=== PATIENT | male | born 1960 | race Caucasian/White ===

== ENCOUNTER 2016-08-16 17:24 | Emergency (ER) | payer OTHER ==
[~2016-08-16] VITALS: Ht 175.3 cm; Wt 82.0 kg
[~2016-08-16 17:24] MED LIST: ADVA250A INH; ALBU1.25 NEB; ALPR-138 PO; BACT800T5 PO; CIPR500T2 PO; DYAZ37.52 PO; MEDR4PAK3 PO; NAPR500 PO
[2016-08-16 17:35] VITALS: BP 147/81; PULSE 77; RESP 18; TEMP 98.9; O2SAT 95
[2016-08-16] MEDS ORDERED: HYDR-3534 PO (17:52)
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
[2016-08-16] MEDS ORDERED: KETOROLAC TROMETHAMINE 60 MG/2 ML (IM) VIAL IM ONE (18:00)
[2016-08-16] MEDS ORDERED: ORPHENADRINE INJ 60 MG/2 ML AMP IM ONE (18:00)
--- NOTE | 2016-08-16 18:22 | RADRPT ---
EXAM DATE/TIME: 08/16/2016 18:08 [facility] COMPARISON: No previous studies available for comparison. INDICATIONS : Wheezing. MEDICAL HISTORY : Chronic obstructive pulmonary disease. SURGICAL HISTORY : None. ENCOUNTER: Initial ACUITY: 1 day PAIN SCORE: 0/10 LOCATION: Bilateral chest FINDINGS: Lungs are hyperexpanded. There is basilar scarring. No infiltrate seen. No pleural effusion or pneumo thorax. Heart size within normal limits. Thoracic aorta is tortuous. CONCLUSION: No evidence of acute cardiopulmonary disease. Hyperexpanded but clear lungs. Domenico Robles MD on August 16, 2016 at 18:20 Board Certified Radiologist. This report was verified electronically.
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
[2016-08-16] MEDS ORDERED: IBUP800T23 PO (18:52)
[2016-08-16] MEDS ORDERED: CYCL1TAB29 PO (18:52)
== END 2016-08-16 19:37 | disposition home or self-care (01) ==
LOC: NEPD 17:24
DX: M62.838 Other muscle spasm (principal); S39.012A Strain of muscle, fascia and tendon of lower back, initial encounter; J44.9 Chronic obstructive pulmonary disease, unspecified; G89.29 Other chronic pain; I10 Essential (primary) hypertension; M54.2 Cervicalgia; V59.49XA Driver of pick-up truck or van injured in collision with other motor vehicles in traffic accident, initial encounter; Y92.410 Unspecified street and highway as the place of occurrence of the external cause; Y99.0 Civilian activity done for income or pay; Z72.0 Tobacco use
CPT/HCPCS: 71020; 72040; 72100; 96372; 99284; J1885; J2360

== ENCOUNTER 2018-03-13 05:59 | Inpatient (IN) ==
--- NOTE | 2018-03-08 14:12 | MH ---
cc: Zuleyka Guerra MD DATE OF ADMISSION: 03/13/2018 ADMITTING DIAGNOSIS: Osteoarthritic degeneration of the left hip, now being admitted for left total hip arthroplasty. HISTORY OF PRESENT ILLNESS: A 57-year-old male who is being admitted today for a left total hip arthroplasty due to severe painful osteoarthritic degeneration. OTHER PAST HISTORY: The patient has a history of sleep apnea, back pain, and essential hypertension. CURRENT MEDICATIONS: Include: 1. Alprazolam. 2. Clindamycin. 3. Hydrocodone 7.5. 4. Tizanidine. PREVIOUS SURGERIES: None listed. REVIEW OF SYSTEMS: Noncontributory. FAMILY HISTORY: Noncontributory. SOCIAL HISTORY: He does smoke cigarettes. ALLERGIES: HE HAS ALLERGY TO PENICILLIN. PHYSICAL EXAMINATION: GENERAL: We find a 57-year-old male, well-developed, well-nourished, oriented x 3, complaining of pain in his left hip. VITAL SIGNS: Blood pressure 178/106, pulse 80 and regular, respirations 16, temperature 98.7, pulse oximetry 97% on room air. HEENT: Eyes: PERRLA, EOMI. Ears, nose, mouth clear. NECK: Supple. LUNGS: Clear. HEART: Regular rate. ABDOMEN: Soft, positive bowel sounds, nontender. EXTREMITIES: Reveal the left hip to have decreased range of motion. Neurovascularly intact to his toes. IMPRESSION: Severe painful osteoarthritic degeneration of the left hip. PLAN: Admission for left total hip arthroplasty today. The patient was given prescription for postoperative pain and anticoagulation control in the office. J. MD FELICIA Garcia/vita , 01:56 PM , 02:04 PM
[2018-03-13] MEDS ORDERED: Metoprolol Tartrate 25 MG Tablet PO ONE (06:21)
[2018-03-13] MEDS ORDERED: Chlorhexidine Gluconate 2% 1 Pack (2 Cloths) TOPICAL ONE (06:21)
[2018-03-13] MEDS ORDERED: Ketamine Inj 50 MG/5 ML Syringe IV.PUSH ONE (06:27)
[2018-03-13] MEDS ORDERED: HYDROmorphone PF Inj 1 MG/ML Ampul ONE (06:27)
[2018-03-13] MEDS ORDERED: Clindamycin 900 mg/NS Premix 900 MG/50 ML PIGGYBACK IV.SIG SCH ×2 (06:30→12:00)
[2018-03-13] MEDS ORDERED: Chlorhexidine 4% Topical 120 APPLIC/120 ML Bottle TOPICAL SCH (06:30)
[2018-03-13] MEDS ORDERED: Sodium Chlor 0.9% Inj 500 ML IV.SIG SCH (07:00)
[2018-03-13] MEDS ORDERED: Sodium Chlor 0.9% Inj 80 ML, Bupivacaine Liposo PF 1.3% Inj 20 ML, Bupivacaine 0.25% In... P-ARTICULR SCH ×3 (07:30)
[2018-03-13] MEDS ORDERED: Tranexamic Acid Inj 900 MG in Sodium Chlor 0.9% Inj 100 ML IV.SIG SCH ×2 (07:30→10:30)
[2018-03-13] MEDS ORDERED: Glycopyrrolate Inj 1 MG/5 ML Syringe IV.PUSH ONE (07:39)
[2018-03-13] MEDS ORDERED: Phenylephrine/NS 1000 MCG/10ML Syringe IV.PUSH ONE (07:39)
[2018-03-13] MEDS ORDERED: Sod Chloride 0.9% Inj 1,000 ML IV.CONT ONE (07:39)
[2018-03-13] MEDS ORDERED: Neostigmine Inj 5 MG/5 ML Syringe IV.PUSH ONE (07:39)
[2018-03-13] MEDS ORDERED: Lidocaine PF 1% Inj 5 ML Syringe OTHER ONE (07:39)
[2018-03-13] MEDS ORDERED: Tranexamic Acid Inj 1,000 MG in Sodium Chlor 0.9% Inj 100 ML IV.SIG ONE (07:42)
[2018-03-13] MEDS ORDERED: Bisacodyl 10 MG Supp RECTAL PRN (07:42)
[2018-03-13] MEDS ORDERED: Post-op Orders (for Pharmacy) OTHER STA (07:42)
[2018-03-13] MEDS ORDERED: Morphine Inj 4 MG/ML Vial IV.PUSH PRN (07:42)
--- NOTE | 2018-03-13 07:49 | P.DCO ---
- Physical Therapy Order: Evaluate and treat, Improve ambulation, Strength and gait training - Case Management Consult Yes - Certification I have seen patient Adam Bui on 03/13/18. My clinical findings support the need for the requested home health care services because: Limited ability to care for self, High risk of falls I certify that my clinical findings support that this patient is homebound because: Post-op weakness, Unsteady gait/balance
[2018-03-13] MEDS ORDERED: VARENICLINE PO SCH (09:00)
--- NOTE | 2018-03-13 10:11 | P.CONIM ---
History of Present Illness Requesting Physician: Nathalie Guerra Reason for Consult: apnea Primary Care Provider: Salima Rodriguez MD History of Present Illness: This a 57-year-old male patient with a past medical history which includes COPD, current tobacco abuse on Chantix trying to quit, generalized anxiety disorder, hypertension, hyperlipidemia and osteoarthritis of the left hip. Patient was admitted to the hospital today for planned left hip arthroplasty with Dr. Guerra. We have been consulted for assistance in management of sleep apnea. Patient denies sleep apnea reports he does not use CPAP or BiPAP at home. Patient reports he is doing well and offers no specific complaints at this time. Patient denies nausea vomiting diarrhea constipation fevers chills cough congestion shortness of breath or chest pain. PMH: COPD, current tobacco abuse on Chantix trying to quit, generalized anxiety disorder, hypertension, hyperlipidemia and osteoarthritis of the left hip PSxH: Cholecystectomy, destruction of benign benign lesion by cryosurgery, excision of trunk lesion, surgical repair of left wrist Social history: works part-time quit smoking a couple days ago Occasional EtOH use not on a daily basis FMH: Reviewed and noncontributory [facility] Social History Social History Substance History: Active Abuse Second Hand Smoke Exposure: No Smoking Status: Former smoker Tobacco Type: Cigarettes How Often Do You Have a Drink Containing Alcohol: Never Substance Abuse Detail Marijuana: Substance Use Status: Active Route Used Substance Abuse: Inhalation Substance Frequency: occasional Medications and Allergies Allergies Allergy/AdvReac Type Severity Reaction Status Date / Time penicillin G Allergy Severe ANAPHYLAXIS Verified 03/13/18 06:28 Home Medications Medication Instructions Recorded Confirmed Type alprazolam 1 mg PO HS 03/06/18 03/13/18 History hydrocodone-acetaminophen 1 tab PO Q6H PRN 03/06/18 03/13/18 History ibuprofen 800 mg PO TID PRN 03/06/18 03/13/18 History varenicline [Chantix Starting 1 tab PO BID 03/06/18 03/13/18 History Month Box] albuterol sulfate 2 puff INHALATION Q4-6H PRN 03/13/18 03/13/18 History diltiazem HCl 60 mg PO BID 03/13/18 03/13/18 History tizanidine 4 mg PO TID PRN 03/13/18 03/13/18 History Active Medications: Active Medications Hydrocodone Bitart/Acetaminophen ([place] 7.5/325) 1 tab PO Q4H PRN PRN Reason: PAIN LESS THAN 5 ON SCALE Hydrocodone Bitart/Acetaminophen ([place] 7.5/325) 2 tab PO Q6H PRN PRN Reason: PAIN SCALE 5 TO 10 Al Hydroxide/Mg Hydroxide (Milk Of Magnesia Liq) 30 ml PO BID PRN PRN Reason: Mild Constipation Albuterol (Ventolin Hfa Inh) 2 puff INH Q4-6H PRN PRN Reason: Shortness Of Breath Alprazolam (Xanax) 1 mg PO HS TANYA Apixaban (Eliquis) 2.5 mg PO BID TANYA Bisacodyl (Dulcolax Supp) 10 mg RECTAL DAILY PRN PRN Reason: SEVERE CONSITIPATION Chlorhexidine Gluconate (Hibiclens 4% Topical) 1 applicatio TOPICAL ONCE [facility] Stop: 03/17/18 06:29 Last Admin: 03/13/18 06:30 Dose: 1 applicatio Sodium Chloride 80 ml/Bupivacaine Liposome 20 ml/Bupivacaine HCl 20 ml 0 ml P- ARTICULR ONCE [facility] Stop: 03/13/18 14:00 Last Admin: 03/13/18 09:32 Dose: 120 bag Lactated Ringer's (Lr 1000 Ml Inj) 1,000 mls @ 30 mls/hr IV.SIG .Q24H [facility] Stop: 03/14/18 06:29 Last Infusion: 03/13/18 10:00 Dose: Infused Sodium Chloride (Ns Inj) 500 mls @ 30 mls/hr IV.SIG .Q10H [facility] Last Admin: 03/13/18 06:46 Dose: Not Given Tranexamic Acid 900 mg/ Sodium (Chloride) 109 mls @ 200 mls/hr IV.SIG ONCE [facility] Stop: 03/13/18 14:00 Last Infusion: 03/13/18 08:20 Dose: Infused Tranexamic Acid 900 mg/ Sodium (Chloride) 109 mls @ 200 mls/hr IV.SIG ONCE [facility] Stop: 03/13/18 14:00 Clindamycin/Sodium Chloride (Cleocin 900 Mg/Ns Premix) 900 mg in 50 mls @ 100 mls/hr IV.SIG TAXI [employer]UCK [employer]IVER [facility] Stop: 03/17/18 06:29 Last Infusion: 03/13/18 08:05 Dose: Infused Cefazolin Sodium 1,000 mg/ (Sodium Chloride) 100 mls @ 200 mls/hr IV.SIG Q6H [facility] Stop: 03/13/18 20:29 Lactated Ringer's (Lr 1000 Ml Inj) 1,000 mls @ 80 mls/hr IV.CONT .[id number] TANYA Tranexamic Acid 1,000 mg/ (Sodium Chloride) 110 mls @ 200 mls/hr IV.SIG ONCE ONE Stop: 03/13/18 08:14 Lactulose (Lactulose Liq) 30 ml PO DAILY PRN PRN Reason: SEVERE CONSITIPATION Miscellaneous Information (Misc Post-Op Orders (For Pharmacy)) 0 each OTHER STAT STA Stop: 03/13/18 07:43 Morphine Sulfate (Morphine Inj) 2 mg IV.PUSH Q3H PRN PRN Reason: BREAKTHROUGH PAIN Multivitamins/Minerals (Theragran-M) 1 tab PO BID [facility] Stop: 05/12/18 08:59 Non-Formulary Medication (Tizanidine [Tizanidine]) 4 mg PO TID PRN PRN Reason: Spasms Non-Formulary Medication (Varenicline [Chantix Starting Month Box]) 1 tab PO BID [facility] Ondansetron HCl (Zofran Odt) 4 mg PO Q6H PRN PRN Reason: NAUSEA OR VOMITING Senna/Docusate Sodium (Melissa-Colace) 1 tab PO BID [facility] Sennosides (Senokot) 17.2 mg PO BID PRN PRN Reason: Moderate Constipation Sodium Chloride (Ns Flush) 2 ml IV.FLUSH PRN PRN PRN Reason: FLUSH AFTER USING IV ACCESS Sodium Chloride (Ns Flush) 2 ml IV.FLUSH BID [facility] Physical Exam Vital signs: Last Vital Signs Temp 98.6 F 03/13/18 06:32 Pulse 68 03/13/18 07:02 Resp 22 03/13/18 07:02 BP 143/91 H 03/13/18 06:32 Pulse Ox 95 03/13/18 06:32 Narrative: GENERAL: This is a well-nourished, well-developed patient, in no apparent distress. CARDIOVASCULAR: Regular rate and rhythm RESPIRATORY: Clear to auscultation. Breath sounds equal bilaterally. GASTROINTESTINAL: Abdomen soft, non-tender, nondistended. Normal active bowel sounds MUSCULOSKELETAL: Extremities without clubbing, cyanosis, or edema. NEURO: Alert & Oriented x4 to person, place, time, situation. Moves all ext x4 Assessment and Plan Plan This a 57-year-old male patient with a past medical history which includes COPD , current tobacco abuse on Chantix trying to quit, generalized anxiety disorder , hypertension, hyperlipidemia and osteoarthritis of the left hip. Patient was admitted to the hospital today for planned left hip arthroplasty with Dr. Guerra. We have been consulted for assistance in management of sleep apnea. Patient denies sleep apnea reports he does not use CPAP or BiPAP at home. Patient reports he is doing well and offers no specific complaints at this time. Patient denies nausea vomiting diarrhea constipation fevers chills cough congestion shortness of breath or chest pain. Osteoarthritis of the left hip Patient was admitted to the hospital today for planned left hip arthroplasty with Dr. Guerra Postop management per Dr. Guerra Anticoagulation per Dr. Guerra COPD Not in acute exacerbation Symbicort inhaled twice daily Duo nebs Q6H while awake and as needed Current tobacco abuse on Chantix trying to quit Counseled encouraged to abstain does not want nicotine patch Generalized anxiety disorder Patient takes alprazolam 1 mg p.o. nightly at home Hypertension History of paroxysmal SVT Continue patient's home diltiazem 60 mg p.o. twice daily Hyperlipidemia Not currently on statin medication at home consumes a low-cholesterol low-fat diet
[2018-03-13] MEDS ORDERED: fentaNYL Citrate Inj 100 MCG/2 ML Ampul ONE (10:31)
--- NOTE | 2018-03-13 10:42 | P.BOP ---
- Preoperative Diagnosis (1) Osteoarthritis of left hip (2) Status post total replacement of left hip Date of procedure: 03/13/18 Procedure: Left Total Hip Arthroplasty Anesthesia: GETA Surgeon: Zuleyka Guerra MD Certified Hyperbaric Technician: Abby Beard Estimated blood loss (mL): 200 Urine output (mL): 0 (no wilkins) Pathology: none sent Condition: stable Disposition: PACU
[2018-03-13] MEDS ORDERED: *morphine SULFATE 4 MG/ML PERIprocedure ONLY ONE (10:50)
[2018-03-13] MEDS ORDERED: *morphine SULFATE 10 MG/ML PERIprocedure ONLY ONE (11:03)
[2018-03-13] MEDS: Senna/Docusate Sodium 8.6/50 MG Tablet PO SCH ×2 (11:06→20:13)
[2018-03-13] MEDS: Multivitamin/Minerals Therapeutic Tablet PO SCH ×2 (11:12→20:13)
--- NOTE | 2018-03-13 11:17 | XR ---
EXAM DATE: 03/13/2018 11:14 AM EST AGE/SEX: 57 years / Male INDICATIONS: Post-op left hip. CLINICAL DATA: This is the patient's initial encounter. Patient reports that signs and symptoms have been present for 1 day and indicates a pain score of Nonresponsive. MEDICAL/SURGICAL HISTORY: Non-responsive. Non-responsive. COMPARISON: No prior exams available for comparison. FINDINGS: The patient is status post a total hip arthroplasty. Prosthesis is well-seated. Alignment is anatomic . A fracture is not appreciated. CONCLUSION: Anatomic alignment. Ajay Sanford MD FACR Electronically signed by: Ajay Sanford MD 03/13/2018 11:16 AM EST
--- NOTE | 2018-03-13 11:37 | MP ---
cc: Zuleyka Guerra MD DATE OF OPERATION: 03/13/2018 PREOPERATIVE DIAGNOSIS: Osteoarthritic degeneration, left hip. POSTOPERATIVE DIAGNOSIS: Osteoarthritic degeneration, left hip. PROCEDURE PERFORMED: Left total hip arthroplasty using Aesculap components, size 58 cup with a 28 x 6.5 mm screw, 36E liner, and a 36 -4 ceramic head with a size 13 press-fit standard stem with no cement utilized. SURGEON: Zuleyka Guerra MD. FLARE MAN: Abby Beard APRN. ANESTHESIA: General intubation. DETAILS OF PROCEDURE: The patient was brought to the Operating Room, where after successful induction of spinal anesthesia was placed on the operating room table in the lateral decubitus position. The left hip, thigh, and leg were prepped and draped in the usual manner. A posterolateral approach was then utilized by making an incision over the proximal portion of the femur lateral aspect, carried across the greater trochanter, carried posterior in a curved incision toward the buttock. The incision was carried down through the subcutaneous tissue, through the fibers of the tensor fascia jeremías and gluteus kalee to expose the greater trochanteric bursa. This was then removed by sharp and blunt dissection. The hip was then internally rotated to expose the insertions of the short external rotators of the hip and were incised at their insertion into the greater trochanter and reflected posterior to protect the sciatic nerve. These were held with a Charnley retractor to better visualize the hip joint. The capsule was identified and removed by sharp dissection. The hip was then dislocated by internal rotation and flexion of the hip. The femoral calcar was then measured using the trial components for the appropriate length cut of the neck using an oscillating saw. After the cut was made the head was removed. The acetabulum was then approached and measured, the acetabulum reamed with the acetabular reamers. Next, the femoral calcar was approached by first inserting a canal finder followed by rigid reamers, followed by a cookie-cutter to the appropriate size, in this case being a #15. The broach was left in place and a planer used to plane the calcar to a smooth finish. The broach was then removed. The trial components were then inserted into place, the hip reduced, found to track smoothly with no evidence of subluxation or dislocation. All trial components were removed. The wound was irrigated copiously with antibiotic solution and Water Pik. The actual components were then inserted and impacted into place using Aesculap components, size 58 cup with a 28 x 6.5 mm screw, 36E liner, and a 36 -4 ceramic head with a size 13 press-fit standard stem with no cement utilized. The hip was reduced, found to track smoothly with no evidence of subluxation or dislocation. Meticulous hemostasis achieved. The wound was irrigated copiously with antibiotic solution. Then 60 mL of mixture of Exparel, normal saline, and 0.25% Marcaine plain inserted in the anterior hip joint staying away from the sciatic nerve, which was identified and protected throughout the procedure. The capsule approximated with interrupted #1 Vicryl, deep fascia approximated with running #2 Quill. Subcutaneous tissue approximated using a running 2-0 and 3-0 Quill and Prineo dressing. Abduction pillow splint. No drain utilized. ESTIMATED BLOOD LOSS: 400 mL. COUNTS: Sponge and instrument counts were correct. DISPOSITION: The patient tolerated the procedure well and left the operating room in satisfactory condition. Abby Beard APRN, was present during the entire procedure to include patient positioning and the procedure. The medical necessity of the nurse practitioner rn first assistant was indicated in this case due to the surgical complexity of the case itself. During the surgical case, the communications tech was working the back table and my animal assistant, NOE, was directly assisting me. JMD FELICIA Christine/lata , 10:40 AM , 10:46 AM
[2018-03-13] MEDS: Clindamycin 900 mg/NS Premix 900 MG/50 ML PIGGYBACK IV.SIG SCH ×2 (15:41→22:37)
[2018-03-13] MEDS: Budesonide-Formoterol 160/4.5 MCG 6 GM Inhaler INH SCH (20:14)
[2018-03-14 06:26] LABS: Hematocrit 36.5 % (39.0-51.0); Hemoglobin 12.6 gm/dL (13.0-17.0)
[2018-03-14] MEDS: Clindamycin 900 mg/NS Premix 900 MG/50 ML PIGGYBACK IV.SIG SCH (06:46)
[2018-03-14] MEDS: Senna/Docusate Sodium 8.6/50 MG Tablet PO SCH (08:13)
[2018-03-14] MEDS: Budesonide-Formoterol 160/4.5 MCG 6 GM Inhaler INH SCH (08:13)
[2018-03-14] MEDS: Multivitamin/Minerals Therapeutic Tablet PO SCH (08:13)
--- NOTE | 2018-03-14 09:21 | P.CON ---
History of Present Illness Service: Radiation oncology Consult date: 03/14/18 Requesting Physician: Nathalie Guerra Reason for Consult: Evaluation for prophylactic radiation to prevent HO formation Primary Care Provider: Salima Rodriguez MD Chief Complaint: Osteoarthritic degeneration of the left hip History of Present Illness: 57-year-old white male with severe osteoarthritic degeneration of the left hip is status post left total hip arthroplasty. Due to the severe painful ulcer to the degeneration of the left hip the patient has undergone a total left hip replacement and Dr. Guerra, has recommended for the patient to have postoperative adjuvant radiation therapy to prevent heterotropic bone formation. Patient has been referred for discussion of her therapy treatment options Review of Systems Constitutional: Denies anorexia, Denies body ache(s), Denies chills, Denies daytime sleepiness, Denies excessive sweating, Denies fatigue, Denies fever(s), Denies headache(s), Denies increased appetite, Denies lack of energy, Denies malaise, Denies night sweats, Denies weakness, Denies weight gain, Denies weight loss, Denies other Eyes: Denies blind spots, Denies blurry vision, Denies bulging eyes, Denies change in vision, Denies double vision, Denies discharge, Denies dry eyes, Denies floaters, Denies irritation, Denies itchy eyes, Denies loss of vision, Denies pain, Denies requires corrective lenses, Denies sensitivity to light, Denies other Ears, Nose, Mouth, and Throat: Denies abnormal hearing, Denies bleeding gums, Denies bad breath, Denies change in voice, Denies dental pain, Denies difficulty swallowing, Denies dizziness, Denies dry mouth, Denies ear discharge , Denies ear pain, Denies facial pain, Denies headache(s), Denies hearing loss, Denies hoarseness, Denies lip swelling, Denies nosebleed, Denies mouth lesions, Denies mouth pain, Denies nasal congestion, Denies nasal discharge, Denies nasal obstruction, Denies nasal trauma, Denies neck lump, Denies neck pain, Denies nose pain, Denies pain with swallowing, Denies poor balance, Denies post nasal drip, Denies ringing in the ears, Denies sinus pain, Denies sinus pressure , Denies sore throat, Denies throat swelling, Denies tongue swelling, Denies other Cardiovascular: Denies chest pain, Denies chest pain at rest, Denies chest pain with activity, Denies excessive sweating, Denies fainting, Denies fast heart rate, Denies foot swelling, Denies generalized swelling, Denies irregular heart rhythm, Denies leg pain with activity, Denies leg sores, Denies leg swelling, Denies lightheadedness, Denies radiating jaw, neck or arm pain, Denies rapid, pounding, or irregular heartbeat, Denies shortness of breath, Denies shortness of breath with activity, Denies shortness of breath when lying down, Denies shortness of breath causing sudden awakening, Denies slow heart rate, Denies other Gastrointestinal: Denies abdominal pain, Denies belching, Denies black, tarry stools, Denies bloating, Denies bright, red blood in stools, Denies change in bowel habits, Denies constant urge to pass stool, Denies change in stools, Denies coffee ground vomit, Denies constipation, Denies cramping, Denies difficulty swallowing, Denies excessive passing of gas, Denies feeling full early, Denies heartburn, Denies incontinent of stools, Denies loose stools, Denies nausea, Denies pain with swallowing, Denies vomiting, Denies vomiting blood, Denies other Genitourinary: Denies blood in semen, Denies blood in urine, Denies decreased urination, Denies difficulty urinating, Denies difficulty with ejaculations, Denies erectile dysfunction, Denies genital lesions, Denies genital pain, Denies painful urination, Denies side pain, Denies frequent nighttime urination , Denies painful ejaculations, Denies penile discharge, Denies scrotal swelling , Denies testicle lump, Denies testicle pain, Denies urinary frequency, Denies urinary hesitancy, Denies urinary incontinence, Denies urinary urgency, Denies other Musculoskeletal: Reports body aches, Reports joint pain, Reports limited joint movement, Reports stiffness Skin/Breast: Denies acne, Denies bleeding lesions, Denies boil, Denies breast swelling, Denies breast skin changes, Denies breast pain, Denies breast lump, Denies change in breast shape, Denies change in hair, Denies change in skin color, Denies changing lesions, Denies dry skin, Denies excessive hair growth, Denies hair loss, Denies itching, Denies lesions, Denies nail changes, Denies new lesions, Denies nipple discharge, Denies non-healing lesions, Denies redness , Denies sensitivity to light, Denies rash, Denies skin pain, Denies skin ulcer , Denies sores, Denies stretch haro, Denies unusual bruising, Denies wounds, Denies yellowing of the skin, Denies other Neurologic: Denies abnormal hearing, Denies abnormal movements, Denies abnormal speech, Denies abnormal walking, Denies behavioral changes, Denies burning sensations, Denies confusion, Denies dizziness, Denies fainting, Denies frequent falls, Denies headache(s), Denies lack of coordination, Denies localized weakness, Denies loss of vision, Denies memory loss, Denies numbness, Denies other visual disturbances, Denies radiating pain, Denies restless legs, Denies convulsions, Denies seizure-like activity, Denies sensory deficit, Denies tingling, Denies tingling/numbness/burning sensations, Denies tremor(s), Denies unsteadiness, Denies weakness, Denies other Psychiatric: Denies abnormal sleep pattern, Denies anxiety, Denies behavioral changes, Denies change in appetite, Denies change in sex drive, Denies confusion , Denies depression, Denies difficulty concentrating, Denies hearing things others do not hear, Denies hopelessness, Denies irritability, Denies lack of enjoyment, Denies memory loss, Denies mood swings, Denies panic attacks, Denies paranoia, Denies seeing things others do not see, Denies sensing things others do not sense, Denies tactile hallucinations, Denies thoughts of hurting/killing others, Denies thoughts of hurting/killing yourself, Denies other Endocrine: Denies cold intolerance, Denies excessive sweating, Denies flushing, Denies heat intolerance, Denies increased hunger, Denies increased thirst, Denies increased urination, Denies rapid, pounding, or irregular heartbeat, Denies other Hematologic/Lymphatic: Denies easy bleeding, Denies easy bruising, Denies enlarged lymph nodes, Denies other Allergic/Immunologic: Reports wheezing, Denies GI upset with certain foods, Denies hives, Denies itchy eyes, Denies lip swelling, Denies seasonal runny nose , Denies throat swelling, Denies tongue swelling, Denies other PMFSH - History History Provided By: Patient, Family Member - Medical History Medical History: Medical History (Last Reviewed 03/14/18 @ 08:41 by Donna Choe) Anxiety Arthritis COPD (chronic obstructive pulmonary disease) Full dentures H/O: hypertension Wears glasses - Surgical History Surgical History: Surgical History (Last Reviewed 03/14/18 @ 08:41 by Donna Choe) H/O skin graft Hx of cholecystectomy Status post wrist surgery - Tobacco History Second Hand Smoke Exposure: No Tobacco Use In Past 30 Days: Yes (currently taking Chantix) Smoking Status: Former smoker Tobacco Type: Cigarettes - Alcohol History How Often Do You Have a Drink Containing Alcohol: Never - Substance Use History Substance History: Active Abuse - Substance Use Type Marijuana Status: Active Route Used: Inhalation Frequency: occasional - Travel History Recent Travel in the [place] Within the Last 8 Weeks: No Recent Travel Out of the Country Within the Last 8 Weeks: No - Immunization History Hx Influenza Vaccine This Season: No Medications and Allergies Active Medications: Active Medications Hydrocodone Bitart/Acetaminophen (Lyman 7.5/325) 1 tab PO Q4H PRN PRN Reason: PAIN LESS THAN 5 ON SCALE Last Admin: 03/14/18 06:48 Dose: 1 tab Hydrocodone Bitart/Acetaminophen (Lyman 7.5/325) 2 tab PO Q6H PRN PRN Reason: PAIN SCALE 5 TO 10 Al Hydroxide/Mg Hydroxide (Milk Of Magnezekiel Liq) 30 ml PO BID PRN PRN Reason: Mild Constipation Albuterol (Duoneb Neb (Prn)) 1 ampul NEB Q2HR NEB PRN PRN Reason: SHORTNESS OF BREATH/WHEEZING Albuterol (Duoneb Neb (Cora)) 1 ampul NEB Q6HR WHILE AWAKE NEB CORA Last Admin: 03/13/18 19:55 Dose: 1 ampul Alprazolam (Xanax) 1 mg PO HS CORA Last Admin: 03/13/18 20:13 Dose: 1 mg Apixaban (Eliquis) 2.5 mg PO BID CORA Last Admin: 03/14/18 08:13 Dose: 2.5 mg Bisacodyl (Dulcolax Supp) 10 mg RECTAL DAILY PRN PRN Reason: SEVERE CONSITIPATION Budesonide/Formoterol Fumarate (Symbicort 160/4.5 Mcg Inh) 1 puff INH BID [facility] Last Admin: 03/14/18 08:13 Dose: 1 puff Chlorhexidine Gluconate (Hibiclens 4% Topical) 1 applicatio TOPICAL ONCE [facility] Stop: 03/17/18 06:29 Last Admin: 03/13/18 06:30 Dose: 1 applicatio Sodium Chloride (Ns Inj) 500 mls @ 30 mls/hr IV.SIG .Q10H [facility] Last Admin: 03/13/18 06:46 Dose: Not Given Lactated Ringer's (Lr 1000 Ml Inj) 1,000 mls @ 80 mls/hr IV.CONT .[id number] [facility] Last Infusion: 03/13/18 22:49 Dose: 30 mls/hr Clindamycin/Sodium Chloride (Cleocin 900 Mg/Ns Premix) 900 mg in 50 mls @ 100 mls/hr IV.SIG Q8H [facility] Stop: 03/14/18 14:59 Last Admin: 03/14/18 06:46 Dose: 100 mls/hr Lactulose (Lactulose Liq) 30 ml PO DAILY PRN PRN Reason: SEVERE CONSITIPATION Miscellaneous Information (Misc Nursing Information) 0 each OTHER UNSCH PRN PRN Reason: SEE LABEL COMMENTS Stop: 03/14/18 10:20 Morphine Sulfate (Morphine Inj) 2 mg IV.PUSH Q3H PRN PRN Reason: BREAKTHROUGH PAIN Multivitamins/Minerals (Theragran-M) 1 tab PO BID [facility] Stop: 05/12/18 08:59 Last Admin: 03/14/18 08:13 Dose: 1 tab Ondansetron HCl (Zofran Odt) 4 mg PO Q6H PRN PRN Reason: NAUSEA OR VOMITING Senna/Docusate Sodium (Melissa-Colace) 1 tab PO BID [facility] Last Admin: 03/14/18 08:13 Dose: 1 tab Sennosides (Senokot) 17.2 mg PO BID PRN PRN Reason: Moderate Constipation Sodium Chloride (Ns Flush) 2 ml IV.FLUSH PRN PRN PRN Reason: FLUSH AFTER USING IV ACCESS Sodium Chloride (Ns Flush) 2 ml IV.FLUSH BID [facility] Last Admin: 03/14/18 08:13 Dose: Not Given Tizanidine HCl (Zanaflex) 4 mg PO TID PRN PRN Reason: MUSCLE SPASM Allergies Allergy/AdvReac Type Severity Reaction Status Date / Time penicillin G Allergy Severe ANAPHYLAXIS Verified 03/13/18 06:28 Home Medications Medication Instructions Recorded Confirmed Type alprazolam 1 mg PO HS 03/06/18 03/13/18 History hydrocodone-acetaminophen 1 tab PO Q6H PRN 03/06/18 03/13/18 History ibuprofen 800 mg PO TID PRN 03/06/18 03/13/18 History varenicline [Chantix Starting 1 tab PO BID 03/06/18 03/13/18 History Month Box] albuterol sulfate 2 puff INHALATION Q4-6H PRN 03/13/18 03/13/18 History diltiazem HCl 60 mg PO BID 03/13/18 03/13/18 History tizanidine 4 mg PO TID PRN 03/13/18 03/13/18 History Physical Exam Vital signs: Vital Signs 03/13/18 10:19 03/13/18 10:45 03/13/18 11:00 Temperature 97.2 F L Pulse Rate 71 82 79 Respiratory Rate 24 16 17 Blood Pressure 114/70 152/99 H 145/87 H Pulse Oximetry 97 94 L 97 03/13/18 11:30 03/13/18 13:00 03/13/18 16:00 Temperature 97.8 F 97.5 F L 97.9 F Pulse Rate 83 80 82 Respiratory Rate 16 16 16 Blood Pressure 133/70 119/71 118/75 Pulse Oximetry 93 L 92 L 96 03/13/18 19:45 03/13/18 20:03 03/14/18 00:10 Temperature 98.4 F 98.5 F Pulse Rate 86 80 91 H Respiratory Rate 19 20 18 Blood Pressure 142/69 H 127/76 Pulse Oximetry 97 95 03/14/18 04:05 Temperature 98.4 F Pulse Rate 87 Respiratory Rate 18 Blood Pressure 142/81 H Pulse Oximetry 94 L Intake & Output 03/13/18 03/14/18 03/14/18 18:59 06:59 18:59 Intake Total 4458 / 4458 1250 / 1250 Output Total 600 / 600 1800 / 1800 Balance 3858 / 3858 -550 / -550 Weight 90 kg 90 kg Intake: IV 1318 / 1318 50 / 50 Cleocin 900 mg/NS Premix 900 mg 100 / 100 50 / 50 In 50 ml @ 100 mls/hr IV.SIG Q8H [facility] Rx#:[id number] LR 1000 mL Inj 1,000 ML @ 30 1000 / 1000 mls/hr IV.SIG .Q24H [facility] Rx#: [id number] Cyklokapron Inj 900 MG In NS 218 / 218 Inj 100 ML @ 200 mls/hr IV.SIG ONCE [facility] Rx#:[id number] Oral 540 / 540 1200 / 1200 Anesthesia Amount 2600 / 2600 Output: Urine 200 / 200 1800 / 1800 Estimated Blood Loss 400 / 400 Other: Date of Last Bowel Movement 03/12/18 03/12/18 03/12/18 - Constitutional no acute distress, obese, cooperative - Routine HEENT Exam Head: Present: normocephalic Eye: Present: EOMI ENT: Present: mucous membranes moist - Routine Neck Exam Present: supple, trachea midline - Routine Respiratory Exam Present: wheezes Comments: There is appropriate ventilatory inspiratory effort there is wheezing on the right lung - Routine Cardiovascular Exam Comments: Heart is regular in rate and rhythm with no murmurs - Routine Abdominal Exam Present: soft - Routine Extremities Exam Comments: There is surgical wound sites on the left hip area with no active discharge. No bleeding. No signs of cellulitis. No signs of infection. - Routine Skin Exam Present: intact, dry - Routine Neurological Exam Present: alert, oriented X3, moving all extremities, vision grossly intact, normal speech - Routine Psychiatric Exam Present: normal affect, normal thought process, cooperative, good insight, good judgment Results - Labs CBC & Chem 7: 03/14/18 06:05 Labs: Laboratory Results - last 24 hr 03/14/18 06:05 Hgb 12.6 L Hct 36.5 L - Imaging Impressions Hip X-Ray 03/13/18 07:42 CONCLUSION: Anatomic alignment. Ajay Sanford MD FACR Assessment and Plan - Assessment (1) Osteoarthritis of left hip Code(s): M16.12 - Unilateral primary osteoarthritis, left hip Status: Acute - Plan Assessment: 57-year-old white male with severe painful osteoarthritic degeneration of the left hip status post total left hip replacement Plan: Patient advised of the merits of postoperative adjuvant radiation therapy to prevent HO formation. I agree with the recommendations of Dr. Guerra for adjuvant radiation therapy. I discussed the merits and alternatives with the patient. Side effects and complications to include but limited to: Weakness and fatigue, decreased blood counts, erythema of the skin, necrosis of the skin , loss of hair in the treated area, decreased sperm counts, patient advised if he wanted to have children he has to wait at least a year, nausea, vomiting, diarrhea, secondary malignancies, hemorrhoidal flareup. After thorough discussion the patient understood everything was explained and agreed to move forward with treatments and a consent form was signed. Patient is to be simulated and treated today. Patient to continue follow-ups with Dr. Guerra. Patient advised if I could be of any further assistance or to please let me know. Dr. Guerra thank you very much for the referral this patient and allowing to participate in his care. Should you have any further questions or concerns please do not hesitate to contact me.
--- NOTE | 2018-03-14 11:28 | P.PNOP ---
Subjective Interval history: Patient comfortable today with no complaints of pain. States he is ready to be discharged today. Physical Exam Vital signs: Vital Signs 03/13/18 11:30 03/13/18 13:00 03/13/18 16:00 Temperature 97.8 F 97.5 F L 97.9 F Pulse Rate 83 80 82 Respiratory Rate 16 16 16 Blood Pressure 133/70 119/71 118/75 Pulse Oximetry 93 L 92 L 96 03/13/18 19:45 03/13/18 20:03 03/14/18 00:10 Temperature 98.4 F 98.5 F Pulse Rate 86 80 91 H Respiratory Rate 19 20 18 Blood Pressure 142/69 H 127/76 Pulse Oximetry 97 95 03/14/18 04:05 03/14/18 08:00 Temperature 98.4 F 98.3 F Pulse Rate 87 85 Respiratory Rate 18 20 Blood Pressure 142/81 H 144/91 H Pulse Oximetry 94 L 95 Intake & Output 03/13/18 03/14/18 03/14/18 18:59 06:59 18:59 Intake Total 4458 / 4458 1250 / 1250 Output Total 600 / 600 1800 / 1800 Balance 3858 / 3858 -550 / -550 Weight 90 kg 90 kg Intake: IV 1318 / 1318 50 / 50 Cleocin 900 mg/NS Premix 900 mg 100 / 100 50 / 50 In 50 ml @ 100 mls/hr IV.SIG Q8H [facility] Rx#:[id number] LR 1000 mL Inj 1,000 ML @ 30 1000 / 1000 mls/hr IV.SIG .Q24H [facility] Rx#: [id number] Cyklokapron Inj 900 MG In NS 218 / 218 Inj 100 ML @ 200 mls/hr IV.SIG ONCE [facility] Rx#:[id number] Oral 540 / 540 1200 / 1200 Anesthesia Amount 2600 / 2600 Output: Urine 200 / 200 1800 / 1800 Estimated Blood Loss 400 / 400 Other: Date of Last Bowel Movement 03/12/18 03/12/18 03/12/18 - Constitutional no acute distress Results - Labs CBC & Chem 7: 03/14/18 06:05 Laboratory Results - last 24 hr 03/14/18 06:05 Hgb 12.6 L Hct 36.5 L Assessment and Plan - Attending Attestation Attending Attestation: Patient is able to go from a sitting to standing position using his walker. He is neurovascularly intact to his toes. Dressing is dry and intact. He has no calf tenderness. Plan is for the patient to have physical therapy today for posterior hip precautions. He is to be discharged tonight as long as he with instructions for home health care and physical therapy. He has prescriptions for p.o. pain meds which she is tolerating well. He has a prescription for his blood thinner which he will take for the next month. Follow-up in the office within 2 weeks. He is being discharged in good condition.
[2018-03-14 18:42] VITALS: O2SAT 94
[2018-03-14 18:43] VITALS: BP 155/92; PULSE 99; RESP 20; TEMP 98.2
== END 2018-03-14 18:58 | disposition home health service (06) ==
LOC: HSDI 05:59 → N06 11:51
PROVIDERS: ADMIT Surgery; ATTEND Surgery
DX: Z88.0 Allergy status to penicillin; J44.9 Chronic obstructive pulmonary disease, unspecified; M16.12 Unilateral primary osteoarthritis, left hip; G47.30 Sleep apnea, unspecified; F17.210 Nicotine dependence, cigarettes, uncomplicated; F41.1 Generalized anxiety disorder; E78.5 Hyperlipidemia, unspecified; I10 Essential (primary) hypertension; M96.89 Other intraoperative and postprocedural complications and disorders of the musculoskeletal system